=== PATIENT | female | born 1980 | race Caucasian/White ===

== ENCOUNTER 2017-06-30 11:56 | Emergency (ER) | payer MEDICAID ==
[2017-06-30] MEDS ORDERED: NORMAL SALINE 1000 ML 1,000 ML IV ONE (13:06)
[2017-06-30] MEDS ORDERED: NORMAL SALINE 1000 ML 1,000 ML IV PRN (13:06)
[2017-06-30] MEDS ORDERED: LORAZEPAM 1 MG TABLET PO ONE (13:13)
[2017-06-30 14:16] LABS: ABSOLUTE BASOPHILS # (AUTO) 0.1 10^3/uL (0.0-0.2); ABSOLUTE LYMPHOCYTES (AUTO) 0.9 10^3/uL (0.5-4.7); ABSOLUTE MONOCYTES (AUTO) 0.5 10^3/uL (0.1-1.4); ABSOLUTE NEUT (AUTO) 7.6 10^3/uL (1.7-8.2); BASOPHILS % (AUTO) 0.6 % (0-2); EOSINOPHILS % (AUTO) 0.1 % (0-6); HEMATOCRIT 27.4 % (36.0-47.0); HEMOGLOBIN 9.7 g/dL (12.0-15.5); LYMPHOCYTES % (AUTO) 9.8 % (13-45); MEAN CORPUSCULAR HEMOGLOBIN 36.6 pg (27.0-33.4); MEAN CORPUSCULAR HGB CONC 35.4 g/dL (32.0-36.0); MEAN CORPUSCULAR VOLUME 103 fl (80-97); PLATELET COUNT 122 10^3/uL (150-450); RED BLOOD COUNT 2.65 10^6/uL (3.72-5.28); RED CELL DISTRIBUTION WIDTH 13.9 % (11.5-14.0); SEGMENTED NEUTROPHILS % (AUTO) 83.5 % (42-78); TOTAL CELLS COUNTED % (AUTO) 100 %; WHITE BLOOD COUNT 9.2 10^3/uL (4.0-10.5)
[2017-06-30 14:24] LABS: ALANINE AMINOTRANSFERASE 62 U/L (9-52); ALBUMIN 2.8 g/dL (3.5-5.0); ALKALINE PHOSPHATASE 462 U/L (38-126); ANION GAP 12 (5-19); ASPARTATE AMINO TRANSFERASE 276 U/L (14-36); BILIRUBIN,DIRECT 1.9 mg/dL (0.0-0.4); BILIRUBIN,TOTAL 2.6 mg/dL (0.2-1.3); BLOOD UREA NITROGEN 2 mg/dL (7-20); CALCIUM 7.9 mg/dL (8.4-10.2); CARBON DIOXIDE 32 mmol/L (22-30); CHLORIDE 90 mmol/L (98-107); CREATINE KINASE 35 U/L (30-135); GLUCOSE 97 mg/dL (75-110); LIPASE 36.2 U/L (23-300); POTASSIUM 3.5 mmol/L (3.6-5.0); SODIUM 134.3 mmol/L (137-145); TOTAL PROTEIN 6.4 g/dL (6.3-8.2)
--- NOTE | 2017-06-30 14:29 | ER Document Report ---
ED General - General Chief Complaint: Alcohol Withdrawl Stated Complaint: ETOH Time Seen by Provider: 06/30/17 13:06 Mode of Arrival: Ambulatory Notes: History of present illness-37 years old female with a history of heavy alcohol use, try to stop on her own could not then started drinking again. She started having abdominal cramps and vomiting general malaise therefore come to the ED. No fever chills or other constitutional symptoms Has some mid abdominal pain. On and off. Difficult historian REVIEW OF SYSTEMS: CONSTITUTIONAL : Denies fever, chills, or sweats. Denies recent illness. EENT: Denies eye, ear, throat, or mouth pain or symptoms. Denies nasal or sinus congestion or discharge. Denies throat, tongue, or mouth swelling or difficulty swallowing. CARDIOVASCULAR: Denies chest pain. Denies palpitations or racing or irregular heart beat. Denies ankle edema. RESPIRATORY: Denies cough, cold, or chest congestion. Denies shortness of breath, difficulty breathing, or wheezing. GASTROINTESTINAL: Denies abdominal distention. Denies nausea, vomiting, or diarrhea. Denies blood in vomitus, stools, or per rectum. Denies black, tarry stools. Denies constipation. GENITOURINARY: Denies difficulty urinating, painful urination, burning, frequency, blood in urine, or discharge. FEMALE GENITOURINARY: Denies vaginal bleeding, heavy or abnormal periods, irregular periods. Denies vaginal discharge or odor. MUSCULOSKELETAL: Denies back or neck pain or stiffness. Denies joint pain or swelling. SKIN: Denies rash, lesions or sores. HEMATOLOGIC : Denies easy bruising or bleeding. LYMPHATIC: Denies swollen, enlarged glands. NEUROLOGICAL: Denies confusion or altered mental status. Denies passing out or loss of consciousness. Denies dizziness or lightheadedness. Denies headache. Denies weakness or paralysis or loss of use of either side. Denies problems with gait or speech. Denies sensory loss, numbness, or tingling. Denies seizures. PSYCHIATRIC: Denies anxiety or stress. Denies depression, suicidal ideation, or homicidal ideation. ALL OTHER SYSTEMS REVIEWED AND NEGATIVE. PHYSICAL EXAMINATION: GENERAL: Lean female seems to be in moderate discomfort HEAD: Atraumatic, normocephalic. EYES: Pupils equal round and reactive to light, extraocular movements intact, conjunctiva are normal. ENT: Nares patent, oropharynx clear without exudates. Moist mucous membranes. NECK: Normal range of motion, supple without lymphadenopathy LUNGS: Breath sounds clear to auscultation bilaterally and equal. No wheezes rales or rhonchi. HEART: Regular rate and rhythm without murmurs ABDOMEN: Soft, midabdominal tenderness, nondistended abdomen. No guarding, no rebound. No masses appreciated. Female : deferred Musculoskeletal: Normal range of motion, no pitting or edema. No cyanosis. NEUROLOGICAL: Cranial nerves grossly intact. Normal speech, normal gait. Normal sensory, motor exams PSYCH: Normal mood, normal affect. SKIN: Multiple erythematous rash noted Dictation was performed using [email or web address] voice recognition software TRAVEL OUTSIDE OF THE [place] IN LAST 30 DAYS: No - HPI Onset: Last week Onset/Duration: Gradual Quality of pain: Cramping, Sharp Severity: Moderate Pain Level: 3 Associated symptoms: Nausea, Vomiting. denies: None, Allergy/hay fever, Body/ muscle aches, Chest pain, Chills, Nonproductive cough, Productive cough, Diarrhea, Drooling, Earache, Fever, Headache, Hoarseness, Hurts to breath, Leg swelling, Rhinnorhea, Sinus pain/drainage, Shortness of breath, Slow to respond , Sore throat, Sweating, Weakness, Other Exacerbated by: denies: Denies, Supine, Sitting, Standing, Movement, Walking, Coughing, Deep breathing, Food, Other Relieved by: denies: Denies, Supine, Sitting, Standing, Remaining still, Antacids, Food, Other Similar symptoms previously: Yes Recently seen / treated by doctor: Yes - Related Data Allergies/Adverse Reactions: codeine [Codeine] Allergy (Verified 11/26/14 09:21) iodine [Iodine] Allergy (Verified 11/26/14 09:21) Penicillins Allergy (Verified 11/26/14 09:21) Shellfish * [Shellfish] Allergy (Verified 11/26/14 09:21) tramadol [Tramadol] Allergy (Verified 11/26/14 09:21) diphenhydramine HCl [From Benadryl] Adverse Reaction (Verified 11/26/14 09:21) restless legs promethazine HCl [From Phenergan] Adverse Reaction (Verified 11/26/14 09:21) restless leg Past Medical History - General Information source: Patient - Social History Smoking Status: Current Every Day Smoker Chew tobacco use (# tins/day): No Frequency of alcohol use: Heavy Drug Abuse: None Lives with: Family Family History: Reviewed & Not Pertinent Patient has suicidal ideation: No Patient has homicidal ideation: No - Past Medical History Cardiac Medical History: Denies: None, Hx Atrial Fibrillation, Hx Congestive Heart Failure, Hx Coronary Artery Disease, Hx DVT, Hx Heart Attack, Hx Hypercholesterolemia, Hx Hypertension, Hx Peripheral Vascular Disease, Hx Pulmonary Embolism, Hx Heart Murmur, Other Pulmonary Medical History: Reports: Hx Bronchitis, Hx Pneumonia Renal/ Medical History: Denies: Hx Peritoneal Dialysis GI Medical History: Reports: Hx Liver Failure - stage 3 3 years ago, drinker for 15 years Musculoskeltal Medical History: Denies Hx Arthritis, Denies Hx Fibromyalgia, Denies Hx Muscular Dystrophy Psychiatric Medical History: Reports: Hx Depression Traumatic Medical History: Denies: Hx Fractures Past Surgical History: Reports: Hx Section - x2. Denies: Hx Appendectomy, Hx Bowel Surgery, Hx Cholecystectomy, Hx Coronary Artery Bypass Graft, Hx Gastric Bypass Surgery, Hx Herniorrhaphy, Hx Hysterectomy, Hx Mastectomy, Hx Pacemaker, Hx Tonsillectomy, Hx Tubal Ligation - Immunizations Hx Diphtheria, Pertussis, Tetanus Vaccination: Yes Hx Pneumococcal Vaccination: 11/29/11 Review of Systems - Review of Systems Constitutional: Malaise, Weakness. denies: No symptoms reported, See HPI, Chills, Diaphoresis, Fever, Other, Weight gain, Weight loss, Recent illness EENT: denies: No symptoms reported, See HPI, Eye pain, Eye discharge, Blurred vision, Tearing, Double vision, Ear pain, Ear discharge, Nose pain, Nose congestion, Nose discharge, Sinus pressure, Sinus discharge, Throat pain, Difficulty swallowing, Throat swelling, Mouth pain, Mouth swelling, Dental problem, Vertigo, Other Cardiovascular: denies: No symptoms reported, See HPI, Chest pain, Palpitations , Heart racing, Orthopnea, Dyspnea, Syncope, Dizziness, Lightheaded, Edema, Other, Paroxysmal Nocturnal Dysp Respiratory: denies: No symptoms reported, See HPI, Cough, Hurts to breathe, Hemoptysis, Short of breath, Sputum, Stridor, Wheezing, Other Gastrointestinal: See HPI Genitourinary: denies: No symptoms reported, See HPI, Burning, Dysuria, Discharge, Frequency, Flank pain, Hematuria, Incontinence, Pain, Urgency, Retention, Other Female Genitourinary: denies: No symptoms reported, See HPI, Last menstrual period, , Post menopausal, Heavy/abnormal periods, Irregular period, Vaginal bleeding, Vaginal discharge, Vaginal odor, Painful intercourse, Other Musculoskeletal: denies: No symptoms reported, See HPI, Back pain, Gout, Joint pain, Joint swelling, Muscle pain, Muscle stiffness, Neck pain, Deformity, Leg swelling, Ankle swelling, Other Hematologic/Lymphatic: denies: No symptoms reported, See HPI, Anemia, Blood clots, Easy bleeding, Easy bruising, Enlarged lymph nodes, Swollen glands, Other Neurological/Psychological: denies: No symptoms reported, See HPI, Confusion, Dementia, Depression, Hallucinations, Anxiety, Homicidal ideation, Sensory change, Weakness, Gait changes, Loss of power, Paralysis, Seizure, Lost consciousness, Headaches, Speech impairment, Numbness, Suicidal ideation, Tingling, Tremor, Other Physical Exam - Vital signs Vitals: Temp Pulse Resp BP Pulse Ox 99.0 F 120 H 18 100/75 100 06/30/17 13:00 06/30/17 13:00 06/30/17 13:00 06/30/17 13:00 06/30/17 13:00 Course - Vital Signs Vital signs: Temp Pulse Resp BP Pulse Ox 99.0 F 120 H 18 100/75 100 06/30/17 13:00 06/30/17 13:00 06/30/17 13:00 06/30/17 13:00 06/30/17 13:00 - Laboratory Result Diagrams: 06/30/17 13:55 06/30/17 13:25 Laboratory results interpreted by me: 06/30/17 06/30/17 13:25 13:55 RBC 2.65 L Hgb 9.7 L Hct 27.4 L MCV 103 H MCH 36.6 H Plt Count 122 L Seg Neutrophils % 83.5 H Lymphocytes % 9.8 L Sodium 134.3 L Potassium 3.5 L Chloride 90 L Carbon Dioxide 32 H BUN 2 L Creatinine 0.43 L Calcium 7.9 L Total Bilirubin 2.6 H Direct Bilirubin 1.9 H AST 276 H ALT 62 H Alkaline Phosphatase 462 H Albumin 2.8 L - Diagnostic Test Radiology reviewed: Reports reviewed - Three-way abdomen was negative for any acute pathology. Discharge - Discharge Clinical Impression: Alcohol abuse, Bulimia Alcoholic hepatitis Qualifiers: Ascites presence: without ascites Qualified Code(s): K70.10 - Alcoholic hepatitis without ascites Condition: Fair Disposition: HOME, SELF-CARE Instructions: Alcoholic Hepatitis ([facility]), Alcohol Withdrawl ([facility]), Bulimia ([facility]) , Chronic Alcoholism ([facility]) Prescriptions: Lorazepam [Ativan] 1 mg PO TID PRN #14 tablet PRN Reason: Referrals: ERIN CHAN DO [Primary Care Provider] - Follow up as needed [facility] [Outside] - Follow up as needed
[2017-06-30] MEDS ORDERED: NICOTINE 14 MG/24 HR PATCH.TD24 TD ONE (14:38)
[2017-06-30] MEDS ORDERED: LORAZEPAM INJ 2 MG/1 ML VIAL IV ONE (14:38)
--- NOTE | 2017-06-30 15:11 | RADIOLOGY REPORT (SQ) ---
EXAM DESCRIPTION: ACUTE ABDOMEN SERIES COMPLETED DATE/TIME: 06/30/2017 2:40 pm REASON FOR STUDY: Abdominal pain COMPARISON: None. NUMBER OF VIEWS: Three views. TECHNIQUE: Frontal chest, supine abdomen and upright/decubitus abdomen radiographic images acquired. LIMITATIONS: None. FINDINGS: CHEST: Lungs clear of infiltrates. FREE AIR: None. No abnormal gas collections. BOWEL GAS PATTERN: Nonobstructive pattern. No dilated loops or air fluid levels. CALCIFICATIONS: No suspicious calcifications. HARDWARE: None in the abdomen. SOFT TISSUES: No gross mass or suggestion of organomegaly. BONES: No acute fracture. No worrisome bone lesions. OTHER: No other significant finding. IMPRESSION: NO RADIOGRAPHIC EVIDENCE FOR ACUTE ABDOMINAL DISEASE. TECHNICAL DOCUMENTATION: JOB ID: [id number] [employer]- All Rights Reserved Reading location - IP/workstation name: [email or web address]
[2017-06-30 17:06] VITALS: BP 112/80
== END 2017-06-30 17:09 | disposition home or self-care (01) ==
LOC: ER 11:56
DX: F10.10 Alcohol abuse, uncomplicated (principal); K70.10 Alcoholic hepatitis without ascites; F50.2 Bulimia nervosa; R10.9 Unspecified abdominal pain; R53.81 Other malaise; R53.1 Weakness; R21 Rash and other nonspecific skin eruption; F17.200 Nicotine dependence, unspecified, uncomplicated; Z88.5 Allergy status to narcotic agent; Z88.0 Allergy status to penicillin; Z91.013 Allergy to seafood
CPT/HCPCS: 99284; 96361; 96374; 36415; 82550; 83690; 85025; 80076; 80048; 74022; J2060; J7030; J3490

== ENCOUNTER 2017-08-17 00:07 | Emergency (ER) | payer MEDICAID, OTHER ==
[2017-08-17 00:20] VITALS: BP 98/67
[2017-08-17] MEDS ORDERED: GABAPENTIN 300 MG CAPSULE PO ONE (00:48)
[2017-08-17] MEDS ORDERED: RINGERS SOLUTION,LACTATED 1,000 ML IV ONE (00:48)
[2017-08-17] MEDS ORDERED: MULTIVITAMIN TABLET PO ONE (00:49)
[2017-08-17] MEDS ORDERED: THIAMINE HCL 100 MG, FOLIC ACID 1 MG in NORMAL SALINE 250 ML IV SCH (01:00)
[2017-08-17] MEDS ORDERED: NICOTINE 21 MG/24 HR PATCH.TD24 TD ONE (01:28)
--- NOTE | 2017-08-17 01:33 | ER Document Report ---
ED General - General Chief Complaint: Alcohol Withdrawl Stated Complaint: DETOX Time Seen by Provider: 08/17/17 00:40 Notes: Patient is a 37-year-old female who presents with complaint of needing detox from alcohol. She says she has been in rehab several times in the past. She says that she has been drinking since she was 18 years of age. She drinks 12 or more beers a day. She says that she has children at home and she feels that she needs to quit for the better sake of her children. Her children with her family currently under safe. Patient denies any drug use. She does smoke cigarettes. She has no other complaints at this time. She does have previous history of alcohol withdrawal. No history of seizures. TRAVEL OUTSIDE OF THE [place] IN LAST 30 DAYS: No - Related Data Allergies/Adverse Reactions: codeine [Codeine] Allergy (Verified 11/26/14 09:21) iodine [Iodine] Allergy (Verified 11/26/14 09:21) Penicillins Allergy (Verified 11/26/14 09:21) Shellfish * [Shellfish] Allergy (Verified 11/26/14 09:21) tramadol [Tramadol] Allergy (Verified 11/26/14 09:21) diphenhydramine HCl [From Benadryl] Adverse Reaction (Verified 11/26/14 09:21) restless legs promethazine HCl [From Phenergan] Adverse Reaction (Verified 11/26/14 09:21) restless leg Past Medical History - Social History Smoking Status: Never Smoker Frequency of alcohol use: None Drug Abuse: None Family History: Reviewed & Not Pertinent - Past Medical History Cardiac Medical History: Denies: Hx Atrial Fibrillation, Hx Congestive Heart Failure, Hx Coronary Artery Disease, Hx DVT, Hx Heart Attack, Hx Hypercholesterolemia, Hx Hypertension, Hx Peripheral Vascular Disease, Hx Pulmonary Embolism, Hx Heart Murmur Pulmonary Medical History: Reports: Hx Bronchitis, Hx Pneumonia Denies: Hx Tuberculosis Renal/ Medical History: Denies: Hx Peritoneal Dialysis GI Medical History: Reports: Hx Liver Failure - stage 3 3 years ago, drinker for 15 years Musculoskeltal Medical History: Denies Hx Arthritis, Denies Hx Fibromyalgia, Denies Hx Muscular Dystrophy Psychiatric Medical History: Reports: Hx Depression Traumatic Medical History: Denies: Hx Fractures Past Surgical History: Reports: Hx Section - x2. Denies: Hx Appendectomy, Hx Bowel Surgery, Hx Cholecystectomy, Hx Coronary Artery Bypass Graft, Hx Gastric Bypass Surgery, Hx Herniorrhaphy, Hx Hysterectomy, Hx Mastectomy, Hx Pacemaker, Hx Tonsillectomy, Hx Tubal Ligation - Immunizations Hx Diphtheria, Pertussis, Tetanus Vaccination: Yes Hx Pneumococcal Vaccination: 11/29/11 Review of Systems - Review of Systems Notes: My Normal Review Basic REVIEW OF SYSTEMS: CONSTITUTIONAL : Denies fever, chills, or sweats. Denies recent illness. EENT: Denies eye, ear, throat, or mouth pain or symptoms. Denies nasal or sinus congestion. RESPIRATORY: Denies cough, cold, or chest congestion. Denies shortness of breath, difficulty breathing, or wheezing. GASTROINTESTINAL: Denies abdominal pain. Denies nausea, vomiting, or diarrhea. GENITOURINARY: Denies difficulty urinating, painful urination, burning, frequency, or blood in urine. MUSCULOSKELETAL: Denies neck or back pain or joint pain or swelling. SKIN: Denies rash or skin lesions. NEUROLOGICAL: Denies altered mental status or loss of consciousness. Denies headache. Denies current tremor. ALL OTHER SYSTEMS REVIEWED AND NEGATIVE. Physical Exam - Vital signs Vitals: Temp Pulse Resp BP Pulse Ox 98.6 F 116 H 20 98/67 L 92 08/17/17 00:18 08/17/17 00:18 08/17/17 00:18 08/17/17 00:08/17/17 00:18 - Notes Notes: General Appearance: Well nourished, alert, cooperative, no acute distress, no obvious discomfort. Well appearing Vitals: reviewed, See vital signs table. Head: no swelling or tenderness to the head Eyes: PERRL, EOMI, Conjuctiva clear Mouth: No decreasd moisture Throat: No tonsillar inflammation, No airway obstruction, No lymphadenopathy Neck: Supple, no neck tenderness Lungs: No wheezing, No rales, No rhonci, No accessory muscle use, good air exchange bilaterally. Heart: Tachycardic l rate, Regular rythm, No murmur, no rub Abdomen: Normal BS, soft, No rigidity, No abdominal tenderness, No guarding, no rebound, no abdominal masses, no organomegaly Extremities: strength 5/5 in all extremities, good pulses in all extremities, no swelling or tenderness in the extremities, no edema. Skin: warm, dry, appropriate color, no rash Neuro: speech clear, oriented x 3, normal affect, responds appropriately to questions. No nerves II through XII are intact. Patient moves all extremities without difficulty. Normal gait. Course - Re-evaluation Re-evalutation: 08/17/17 03:37 Talk to patient length initial evaluation about staying speak to psychiatry also to receive IV fluids as well as C medications help prevent withdrawal. Patient initially agreed to this. I was not informed the patient tried Aleve several times. I went spoke with the patient she says that she just needs to smoke a cigarette once and that should be okay with nicotine patch afterwards. Patient already removed her IV. I informed her that I want what is best for her and I do want her to stay to try to get help and therefore I told her I would allow to go smoke a cigarette if she would be willing to stay. Patient agrees with this. Patient went smoke a cigarette and then came back. The nurse said shortly after she came back to the room she grabbed her stuff and left and never returned. Patient has eloped. Dictation of this chart was performed using voice recognition software; therefore, there may be some unintended grammatical errors. - Vital Signs Vital signs: Temp Pulse Resp BP Pulse Ox 98.6 F 116 H 20 98/67 L 92 08/17/17 00:18 08/17/17 00:18 08/17/17 00:18 08/17/17 00:18 08/17/17 00:18 - Laboratory Result Diagrams: 08/17/17 02:30 08/17/17 02:30 Laboratory results interpreted by me: 08/17/17 02:30 WBC 13.3 H RBC 3.38 L Hgb 11.7 L Hct 34.8 L MCV 103 H MCH 34.6 H RDW 15.4 H Seg Neutrophils % 79.8 H Absolute Neutrophils 10.6 H - EKG Interpretation by Me Additional EKG results interpreted by me: 08/17/17 01:32 EKG is reviewed and interpreted by me. EKG shows sinus tachycardia with rate of [address] segment elevation or depression. No ischemic T-wave inversions. AR interval, QRS duration are within normal range. QT interval slightly prolonged. Old EKG for comparison is from February 03, 2015. Discharge - Discharge Clinical Impression: Alcohol abuse Condition: Fair Disposition: ELOPED Referrals: MARICRUZ DAVID MD [Primary Care Provider] - Follow up as needed
[2017-08-17 02:43] LABS: ABSOLUTE BASOPHILS # (AUTO) 0.2 10^3/uL (0.0-0.2); ABSOLUTE LYMPHOCYTES (AUTO) 1.8 10^3/uL (0.5-4.7); ABSOLUTE MONOCYTES (AUTO) 0.7 10^3/uL (0.1-1.4); ABSOLUTE NEUT (AUTO) 10.6 10^3/uL (1.7-8.2); BASOPHILS % (AUTO) 1.3 % (0-2); EOSINOPHILS % (AUTO) 0.2 % (0-6); HEMATOCRIT 34.8 % (36.0-47.0); HEMOGLOBIN 11.7 g/dL (12.0-15.5); LYMPHOCYTES % (AUTO) 13.8 % (13-45); MEAN CORPUSCULAR HEMOGLOBIN 34.6 pg (27.0-33.4); MEAN CORPUSCULAR HGB CONC 33.7 g/dL (32.0-36.0); MEAN CORPUSCULAR VOLUME 103 fl (80-97); MONOCYTES % (AUTO) 4.9 % (3-13); PLATELET COUNT 226 10^3/uL (150-450); RED BLOOD COUNT 3.38 10^6/uL (3.72-5.28); RED CELL DISTRIBUTION WIDTH 15.4 % (11.5-14.0); SEGMENTED NEUTROPHILS % (AUTO) 79.8 % (42-78); TOTAL CELLS COUNTED % (AUTO) 100 %; WHITE BLOOD COUNT 13.3 10^3/uL (4.0-10.5)
[2017-08-17 03:03] LABS: ALANINE AMINOTRANSFERASE 31 U/L (9-52); ALBUMIN 2.7 g/dL (3.5-5.0); ALKALINE PHOSPHATASE 441 U/L (38-126); ANION GAP 15 (5-19); ASPARTATE AMINO TRANSFERASE 97 U/L (14-36); BILIRUBIN,DIRECT 0.5 mg/dL (0.0-0.4); BILIRUBIN,TOTAL 0.5 mg/dL (0.2-1.3); BLOOD UREA NITROGEN 2 mg/dL (7-20); CALCIUM 8.2 mg/dL (8.4-10.2); CARBON DIOXIDE 26 mmol/L (22-30); CHLORIDE 105 mmol/L (98-107); GLUCOSE 87 mg/dL (75-110); POTASSIUM 4.1 mmol/L (3.6-5.0); TOTAL PROTEIN 6.4 g/dL (6.3-8.2)
[2017-08-17 03:47] LABS: ACETAMINOPHEN < 10 ug/mL (10-30); SALICYLATE < 1.0 mg/dL (2.0-20.0)
[2017-08-17 03:49] LABS: ALCOHOL 429 mg/dL (NONE DETECTED)
--- NOTE | 2017-08-17 07:47 | EKG REPORT ---
SEVERITY:- BORDERLINE ECG - SINUS TACHYCARDIA BORDERLINE PROLONGED QT INTERVAL : Confirmed by: Gorge Dominguez MD 17-Aug-2017 07:46:10
== END 2017-08-17 02:46 | disposition left against medical advice (07) ==
LOC: ER 00:07
DX: F10.920 Alcohol use, unspecified with intoxication, uncomplicated (principal); F17.210 Nicotine dependence, cigarettes, uncomplicated; Z88.6 Allergy status to analgesic agent; Z88.0 Allergy status to penicillin; Z91.013 Allergy to seafood; Z90.49 Acquired absence of other specified parts of digestive tract; Z95.1 Presence of aortocoronary bypass graft; Z98.84 Bariatric surgery status
CPT/HCPCS: 93005; 99285; 96360; 36415; 80307 ×3; 84703; 85025; 80053; 93010; J7120; J3490

== ENCOUNTER 2018-01-14 01:40 | Emergency (ER) | payer MEDICAID, OTHER ==
[2018-01-14 01:48] VITALS: BP 134/90
[2018-01-14] MEDS ORDERED: ACETAMINOPHEN 325 MG TABLET PO ONE (02:11)
--- NOTE | 2018-01-14 02:39 | RADIOLOGY REPORT (SQ) ---
EXAM DESCRIPTION: XR CHEST 2 VIEWS COMPLETED DATE/TME: 01/14/2018 02:11 CLINICAL HISTORY: 37 years Female, sob, cough COMPARISON: 09/13/2013 FINDINGS: Increased lung volume, clear parenchyma, normal cardiac silhouette, and intact bony thorax. IMPRESSION: No acute cardiopulmonary findings. Increased lung volume.
[2018-01-14 02:48] LABS: ABSOLUTE BASOPHILS # (AUTO) 0.1 10^3/uL (0.0-0.2); ABSOLUTE EOSINOPHILS # (AUTO) 0.1 10^3/uL (0.0-0.6); ABSOLUTE LYMPHOCYTES (AUTO) 1.8 10^3/uL (0.5-4.7); ABSOLUTE MONOCYTES (AUTO) 0.6 10^3/uL (0.1-1.4); BASOPHILS % (AUTO) 1.1 % (0-2); EOSINOPHILS % (AUTO) 0.8 % (0-6); HEMATOCRIT 43.3 % (36.0-47.0); HEMOGLOBIN 15.3 g/dL (12.0-15.5); LYMPHOCYTES % (AUTO) 27.6 % (13-45); MEAN CORPUSCULAR HEMOGLOBIN 34.6 pg (27.0-33.4); MEAN CORPUSCULAR HGB CONC 35.2 g/dL (32.0-36.0); MEAN CORPUSCULAR VOLUME 98 fl (80-97); MONOCYTES % (AUTO) 9.7 % (3-13); PLATELET COUNT 158 10^3/uL (150-450); RED BLOOD COUNT 4.41 10^6/uL (3.72-5.28); RED CELL DISTRIBUTION WIDTH 16.4 % (11.5-14.0); SEGMENTED NEUTROPHILS % (AUTO) 60.8 % (42-78); TOTAL CELLS COUNTED % (AUTO) 100 %; WHITE BLOOD COUNT 6.6 10^3/uL (4.0-10.5)
[2018-01-14] MEDS ORDERED: LIDOCAINE 5% (700 MG) TRANSDERMAL ADH..PATCH TP ONE (02:50)
[2018-01-14] MEDS ORDERED: KETOROLAC TROMETHAMINE INJ/PF 30 MG/1 ML SDV IV ONE (02:50)
[2018-01-14] MEDS ORDERED: NORMAL SALINE 1000 ML 1,000 ML IV ONE (02:54)
[2018-01-14 03:04] LABS: ANION GAP 19 (5-19); BLOOD UREA NITROGEN 7 mg/dL (7-20); CALCIUM 9.3 mg/dL (8.4-10.2); CARBON DIOXIDE 31 mmol/L (22-30); CHLORIDE 92 mmol/L (98-107); GLUCOSE 108 mg/dL (75-110); POTASSIUM 4.2 mmol/L (3.6-5.0); SODIUM 141.8 mmol/L (137-145)
--- NOTE | 2018-01-14 03:16 | ER Document Report ---
ED General - General Chief Complaint: Cough Stated Complaint: FALL Time Seen by Provider: 01/14/18 02:07 Notes: Patient is a 37-year-old female with a past medical history of alcohol abuse and dependence although reports she is not currently using alcohol who presents with 2 distinct complaints. Her first complaint is that she has had 1 week of a persistent cough and feelings of shortness of breath. She states that her chest hurts when she coughs or takes a deep breath. She states this feels similar to when she has had a pneumonia or bronchitis in the past. She has not seen her general doctor regarding today's concerns. She denies any hemoptysis. No unilateral leg swelling. No history of DVT or pulmonary embolus. She does describe the pain in her chest as being an aching, throbbing, diffuse pain with coughing. She also reports that she had a mechanical fall today and struck her upper back on a step and has had a dull, throbbing, constant pain around her right shoulder blade since that time. Nothing improves or worsens that pain. No head or neck trauma. TRAVEL OUTSIDE OF THE [place] IN LAST 30 DAYS: No - Related Data Allergies/Adverse Reactions: codeine [Codeine] Allergy (Verified 11/26/14 09:21) iodine [Iodine] Allergy (Verified 11/26/14 09:21) Penicillins Allergy (Verified 11/26/14 09:21) Shellfish * [Shellfish] Allergy (Verified 11/26/14 09:21) tramadol [Tramadol] Allergy (Verified 11/26/14 09:21) diphenhydramine HCl [From Benadryl] Adverse Reaction (Verified 11/26/14 09:21) restless legs promethazine HCl [From Phenergan] Adverse Reaction (Verified 11/26/14 09:21) restless leg Past Medical History - General Information source: Patient - Social History Smoking Status: Current Every Day Smoker Frequency of alcohol use: None Drug Abuse: None Lives with: Family Family History: Reviewed & Not Pertinent - Past Medical History Cardiac Medical History: Denies: Hx Atrial Fibrillation, Hx Congestive Heart Failure, Hx Coronary Artery Disease, Hx DVT, Hx Heart Attack, Hx Hypercholesterolemia, Hx Hypertension, Hx Peripheral Vascular Disease, Hx Pulmonary Embolism, Hx Heart Murmur Pulmonary Medical History: Reports: Hx Bronchitis, Hx Pneumonia Denies: Hx Tuberculosis Renal/ Medical History: Denies: Hx Peritoneal Dialysis GI Medical History: Reports: Hx Liver Failure - stage 3 3 years ago, drinker for 15 years Musculoskeletal Medical History: Denies Hx Arthritis, Denies Hx Fibromyalgia, Denies Hx Muscular Dystrophy Psychiatric Medical History: Reports: Hx Depression Traumatic Medical History: Denies: Hx Fractures Past Surgical History: Reports: Hx Section - x2. Denies: Hx Appendectomy, Hx Bowel Surgery, Hx Cholecystectomy, Hx Coronary Artery Bypass Graft, Hx Gastric Bypass Surgery, Hx Herniorrhaphy, Hx Hysterectomy, Hx Mastectomy, Hx Pacemaker, Hx Tonsillectomy, Hx Tubal Ligation - Immunizations Hx Diphtheria, Pertussis, Tetanus Vaccination: Yes Hx Pneumococcal Vaccination: 11/29/11 Review of Systems - Review of Systems Notes: Constitutional: Negative for fever. HENT: Negative for sore throat. Eyes: Negative for visual changes. Cardiovascular: Negative for chest pain. Respiratory: Positive for shortness of breath and cough Gastrointestinal: Negative for abdominal pain, vomiting or diarrhea. Genitourinary: Negative for dysuria. Musculoskeletal: Negative for back pain. Skin: Negative for rash. Neurological: Negative for headaches, weakness or numbness. 10 point ROS negative except as marked above and in HPI. Physical Exam - Vital signs Vitals: Temp Pulse Resp BP Pulse Ox 98.4 F 107 H 17 134/90 H 95 01/14/18 01:47 01/14/18 01:47 01/14/18 01:47 01/14/18 01:47 01/14/18 01:47 Notes: PHYSICAL EXAMINATION: GENERAL: Patient appears much older than stated age but is in no acute distress HEAD: Atraumatic, normocephalic. EYES: Pupils equal round and reactive to light, extraocular movements intact, sclera anicteric, conjunctiva are normal. ENT: nares patent, oropharynx clear without exudates. Moderately dry mucous membranes. NECK: Normal range of motion, supple without lymphadenopathy LUNGS: Breath sounds clear to auscultation bilaterally and equal. No wheezes rales or rhonchi. HEART: Regular tachycardia without murmurs ABDOMEN: Soft, nontender, normoactive bowel sounds. No guarding, no rebound. No masses appreciated. EXTREMITIES: Normal range of motion, no pitting or edema. No cyanosis. Back: No midline spinal tenderness, step-offs or deformities. Mild bruising just below the right scapula NEUROLOGICAL: No focal neurological deficits. Moves all extremities spontaneously and on command. PSYCH: Normal mood, normal affect. SKIN: Warm, Dry, normal turgor, no rashes or lesions noted. Course - Re-evaluation Re-evalutation: 01/14/18 03:16 Patient presents with 2 distinct complaints. First complaint is regarding a mechanical fall with an associated traumatic hematoma below her left scapula. There is no evidence of spinal injury, no head or neck trauma. No indication for imaging of the affected area. The patient also reports that she has had shortness of breath and cough for the last 1 week. Chest x-ray shows findings consistent with emphysematous changes although no acute infiltrate. Patient is noted to be tachycardic at the time of my evaluation currently heart rate of 115. The patient states that she does have tachycardia at baseline. Review of previous records from the emergency department does reveal the patient is persistently tachycardic usually into the 110-120 range at baseline. However given the concern of pleuritic discomfort and her associated tachycardia I will obtain a d-dimer to further clarify that this is not a picture of an acute pulmonary embolus. The remainder of her workup otherwise is unremarkable. Will provide pain control, IV fluids, treat for probable bronchitis assuming that the d-dimer is normal. If this is abnormal patient will undergo CTA of the chest to further clarify. - Vital Signs Vital signs: Temp Pulse Resp BP Pulse Ox 98.4 F 107 H 17 134/90 H 95 01/14/18 01:47 01/14/18 01:47 01/14/18 01:47 01/14/18 01:47 01/14/18 01:47 - Laboratory Result Diagrams: 01/14/18 02:38 01/14/18 02:38 Laboratory results interpreted by me: 01/14/18 01/14/18 02:38 02:38 MCV 98 H MCH 34.6 H RDW 16.4 H Chloride 92 L Carbon Dioxide 31 H - Diagnostic Test Radiology reviewed: Image reviewed, Reports reviewed Radiology results interpreted by me: 01/14/18 03:18 Chest x-ray: No acute infiltrate or pneumothorax Discharge - Discharge Clinical Impression: Cough, Chest discomfort, Shortness of breath Condition: Good Disposition: HOME, SELF-CARE Additional Instructions: You were seen for symptoms most consistent with bronchitis. This can take up to 12 weeks to fully resolve. This is generally due to a viral infection. Please follow-up with your primary doctor in the next 2-3 days. Return if you develop worsening cough, vomiting, fever >100.4, pass out, begin coughing blood, or have any other symptoms that are concerning to you. Please use the medications prescribed today as directed. Prescriptions: Benzonatate [Tessalon Perles 100 mg Capsule] 100 mg PO Q8HP PRN #40 capsule PRN Reason: Referrals: MARICRUZ DAVID MD [Primary Care Provider] - Follow up tomorrow
[2018-01-14] MEDS ORDERED: BENZONATATE 100 MG CAPSULE PO ONE (03:34)
[2018-01-14] MEDS ORDERED: DEXAMETHASONE 4 MG TABLET PO ONE (03:34)
[2018-01-14] MEDS ORDERED: ALBUTEROL SULFATE HFA (90 MCG/PUFF) 200 PUFF/8.5 GM MDI IH ONE (03:34)
== END 2018-01-14 07:25 | disposition home or self-care (01) ==
LOC: ER 01:40
DX: R05 Cough (principal); R06.02 Shortness of breath; R07.1 Chest pain on breathing; R07.89 Other chest pain; S20.221A Contusion of right back wall of thorax, initial encounter; W17.89XA Other fall from one level to another, initial encounter; Y93.89 Activity, other specified; F17.200 Nicotine dependence, unspecified, uncomplicated; Z87.01 Personal history of pneumonia (recurrent); Z88.5 Allergy status to narcotic agent; Z88.0 Allergy status to penicillin; Z91.013 Allergy to seafood; R00.0 Tachycardia, unspecified
CPT/HCPCS: 99284; 96360; 96361; 36415; 84703; 85025; 80048; 85379; 71046; J7030; J3490